=== PATIENT | male | born 1995 | race Caucasian/White ===

== ENCOUNTER 2017-10-02 15:33 | Emergency (ER) | payer OTHER ==
[~2017-10-02] VITALS: Ht 175.2 cm; Wt 63.5 kg
[~2017-10-02 15:33] MED LIST: ALBUTEROL0.09 MG/A2; MEDROL DOSEPAK4 MG PO; ZANTAC150 MG PO; Zithromax200 MG/5 M PO
[2017-10-02] MEDS ORDERED: NAPROSYN500 MG PO (15:52)
[2017-10-02] MEDS ORDERED: NORCO 5-325 TA1 EACH PO (16:22)
== END 2017-10-02 16:40 | disposition home or self-care (01) ==
LOC: ED 15:33
DX: S52.254A Nondisplaced comminuted fracture of shaft of ulna, right arm, initial encounter for closed fracture (principal); V49.88XA Car occupant (driver) (passenger) injured in other specified transport accidents, initial encounter; Y93.89 Activity, other specified; Y92.413 State road as the place of occurrence of the external cause; Y99.9 Unspecified external cause status

== ENCOUNTER → 2020-10-09 | Outpatient (CLI) | payer OTHER ==
[~2020-10-09] MED LIST changes: +NAPROSYN500 MG PO; +NORCO 5-325 TA1 EACH PO
[2020-10-09 13:56] LABS: CHOLESTEROL 194 mg/dL (<200); HDL CHOLESTEROL 38 mg/dl (40-60); LDL CHOLESTEROL 121 mg/dL (9-159); TRIGLYCERIDES 173 mg/dl (<150); VLDL CHOLESTEROL 35 mg/dL (6-40)
== END | disposition home or self-care (01) ==
LOC: LAB 12:48
PROVIDERS: ATTEND Psychiatry & Neurology Psychiatry
DX: Z51.81 Encounter for therapeutic drug level monitoring (principal); Z79.899 Other long term (current) drug therapy

== ENCOUNTER → 2021-04-11 | Outpatient (CLI) | payer OTHER ==
[2021-04-11 10:28] LABS: CHOLESTEROL 233 mg/dL (<200); LDL CHOLESTEROL 124 mg/dL (9-159); TRIGLYCERIDES 378 mg/dl (<150)
== END | disposition home or self-care (01) ==
LOC: LAB 09:34
PROVIDERS: ATTEND Psychiatry & Neurology Psychiatry
DX: Z51.81 Encounter for therapeutic drug level monitoring (principal); Z79.899 Other long term (current) drug therapy

== ENCOUNTER → 2021-07-11 | Outpatient (CLI) | payer OTHER ==
[2021-07-11 11:25] LABS: MEAN CORPUSCULAR HGB 30.3 pg (27.0-31.0); MEAN CORPUSCULAR HGB CONC 33.7 g/dl (33.0-37.0); MEAN PLATELET VOLUME 9.9 fl (9.6-12.3); RED BLOOD COUNT 5.78 10*6/uL (4.50-5.90); RED CELL DISTRI WIDTH 12.5 % (0-14.5); WHITE BLOOD COUNT 9.2 10*3/uL (4.8-10.8)
[2021-07-11 11:45] LABS: ALBUMIN 4.6 gm/dl (3.1-4.5); ALKALINE PHOSPHATASE 67 U/L (45-117); BUN 15 mg/dl (7-24); CHLORIDE 105 mmol/L (98-107); CHOLESTEROL 205 mg/dL (<200); CREATININE 1.09 mg/dL (0.70-1.30); FREE T4 0.92 ng/dl (0.76-1.46); LDL CHOLESTEROL 139 mg/dL (9-159); POTASSIUM 4.1 mmol/L (3.5-5.1); SGOT/AST 11 IU/L (3-35); SGPT/ALT 32 U/L (12-78); SODIUM 138 mmol/L (136-145); TOTAL PROTEIN 8.3 gm/dL (6.4-8.2); TRIGLYCERIDES 109 mg/dl (<150)
[2021-07-11 15:25] LABS: VITAMIN D, 25-HYDROXY 23.5 ng/mL (30-100)
== END | disposition home or self-care (01) ==
LOC: LAB 10:51
PROVIDERS: Family Medicine; ATTEND Psychiatry & Neurology Psychiatry
DX: Z51.81 Encounter for therapeutic drug level monitoring (principal); Z79.899 Other long term (current) drug therapy

== ENCOUNTER → 2022-02-04 | Outpatient (CLI) | payer OTHER ==
[2022-02-04 12:11] LABS: CHOLESTEROL 221 mg/dL (<200); LDL CHOLESTEROL 131 mg/dL (9-159); TRIGLYCERIDES 266 mg/dl (<150)
== END | disposition home or self-care (01) ==
LOC: LAB 10:58
PROVIDERS: ATTEND Psychiatry & Neurology Psychiatry
DX: Z51.81 Encounter for therapeutic drug level monitoring (principal); Z79.899 Other long term (current) drug therapy

== ENCOUNTER → 2022-02-11 | Outpatient (CLI) | payer OTHER ==
[2022-02-11 12:20] LABS: ALKALINE PHOSPHATASE 93 U/L (45-117); BUN 12 mg/dl (7-24); CHLORIDE 105 mmol/L (98-107); CREATININE 1.26 mg/dL (0.70-1.30); POTASSIUM 4.3 mmol/L (3.5-5.1); SGOT/AST 25 IU/L (3-35); SGPT/ALT 47 U/L (12-78); SODIUM 138 mmol/L (136-145); TOTAL PROTEIN 8.3 gm/dL (6.4-8.2)
== END | disposition home or self-care (01) ==
LOC: LAB 11:46
PROVIDERS: ATTEND Family Medicine
DX: E74.9 Disorder of carbohydrate metabolism, unspecified (principal); R63.1 Polydipsia; R63.2 Polyphagia; R35.89 Other polyuria

== ENCOUNTER → 2022-09-23 | Outpatient (CLI) | payer SELFPAY ==
[2022-09-23 09:46] LABS: BASO # 0.1 10*3/uL (0.0-0.1); BASO % 0.8 % (0.0-1.0); EOS # 0.1 10*3/uL (0.0-0.4); EOS % 1.7 % (1.0-4.0); LYMPH # 2.1 10*3/uL (1.3-4.4); LYMPH % 35.5 % (27.0-41.0); MONO # 0.5 10*3/uL (0.1-1.0); MONO % 8.5 % (3.0-9.0); NEUT # 3.2 10*3/uL (2.3-7.9); NEUT % 53.3 % (47.0-73.0); WHITE BLOOD COUNT 5.9 10*3/uL (4.8-10.8)
[2022-09-23 10:04] LABS: CHOLESTEROL 162 mg/dL (<200); LDL CHOLESTEROL 95 mg/dL (9-159); TRIGLYCERIDES 183 mg/dl (<150)
== END | disposition home or self-care (01) ==
LOC: LAB 09:24
PROVIDERS: ATTEND Psychiatry & Neurology Psychiatry
DX: Z51.81 Encounter for therapeutic drug level monitoring (principal); Z79.899 Other long term (current) drug therapy

== ENCOUNTER → 2023-10-28 | Outpatient (CLI) | payer OTHER ==
[2023-10-28 12:53] LABS: HEMATOCRIT 48.2 % (42.0-52.0); MEAN CELL VOLUME 89.1 fl (80.0-94.0); MEAN CORPUSCULAR HGB 29.9 pg (27.0-31.0); MEAN CORPUSCULAR HGB CONC 33.6 g/dl (33.0-37.0); MEAN PLATELET VOLUME 9.8 fl (9.6-12.3); PLATELET COUNT AUTOMATED 193 10*3/uL (130-400); RED BLOOD COUNT 5.41 10*6/uL (4.50-5.90); RED CELL DISTRI WIDTH 11.9 % (0-14.5)
[2023-10-28 12:59] LABS: MANUAL DIFF REFLEX YES
[2023-10-28 13:23] LABS: ATYPICAL LYMPHS 4 % (0-0); BASOPHILS 1 % (0-1); PLATELET SUFFICIENCY NORMAL (NORMAL); TOTAL CELLS COUNTED 100 #CELLS
[2023-10-28 13:27] LABS: ALKALINE PHOSPHATASE 85 U/L (46-116); BUN 12 mg/dl (9-23); CHLORIDE 108 mmol/L (98-107); FREE T4 1.07 ng/dl (0.89-1.76); POTASSIUM 4.7 mmol/L (3.4-5.1); SGPT/ALT 57 U/L (5-49); T3 UPTAKE 29.4 % (22.4-36.7); TOTAL PROTEIN 7.7 gm/dL (6.0-8.0)
== END | disposition home or self-care (01) ==
LOC: LAB 12:19
PROVIDERS: ATTEND Psychiatry & Neurology Psychiatry
DX: Z51.81 Encounter for therapeutic drug level monitoring (principal); Z79.899 Other long term (current) drug therapy

== ENCOUNTER → 2024-06-07 | Outpatient (CLI) | payer OTHER ==
[2024-06-07 15:49] LABS: BASO % 0.1 % (0.0-1.0); EOS % 0.3 % (1.0-4.0); LYMPH # 1.5 10*3/uL (1.3-4.4); LYMPH % 21.9 % (27.0-41.0); MEAN CELL VOLUME 86.7 fl (80.0-94.0); MEAN CORPUSCULAR HGB 30.1 pg (27.0-31.0); MEAN CORPUSCULAR HGB CONC 34.7 g/dl (33.0-37.0); MEAN PLATELET VOLUME 9.8 fl (9.6-12.3); MONO # 0.5 10*3/uL (0.1-1.0); MONO % 7.9 % (3.0-9.0); NEUT # 4.8 10*3/uL (2.3-7.9); NEUT % 69.5 % (47.0-73.0); PLATELET COUNT AUTOMATED 233 10*3/uL (130-400); RED BLOOD COUNT 5.65 10*6/uL (4.50-5.90); WHITE BLOOD COUNT 6.9 10*3/uL (4.8-10.8)
[2024-06-07 16:13] LABS: ALKALINE PHOSPHATASE 76 U/L (46-116); BUN 9 mg/dl (9-23); CHLORIDE 107 mmol/L (98-107); CHOLESTEROL 155 mg/dL (<200); LDL CHOLESTEROL 98 mg/dL (9-159); POTASSIUM 4.1 mmol/L (3.4-5.1); SGPT/ALT 38 U/L (5-49); TOTAL PROTEIN 7.7 gm/dL (6.0-8.0); TRIGLYCERIDES 108 mg/dl (<150)
== END | disposition home or self-care (01) ==
LOC: LAB 15:30
PROVIDERS: ATTEND Psychiatry & Neurology Psychiatry
DX: Z51.81 Encounter for therapeutic drug level monitoring (principal); Z79.899 Other long term (current) drug therapy